=== PATIENT | male | born 1990 ===

== ENCOUNTER 2017-04-30 18:21 | Emergency (ER) | payer BC ==
[2017-04-30] MEDS ORDERED: Fentanyl 100 MCG/2 ML VIAL ONE (20:06)
== END 2017-04-30 20:55 | disposition home or self-care (01) ==
LOC: ERS 18:21
DX: T76.11XA Adult physical abuse, suspected, initial encounter (principal); M54.2 Cervicalgia; M54.9 Dorsalgia, unspecified; M79.605 Pain in left leg; M79.604 Pain in right leg; M25.512 Pain in left shoulder; F41.9 Anxiety disorder, unspecified; F32.9 Major depressive disorder, single episode, unspecified; F17.290 Nicotine dependence, other tobacco product, uncomplicated
CPT/HCPCS: 96372; J3010